=== PATIENT | male | born 1985 | race Two or more races ===

== ENCOUNTER 2021-07-03 04:30 | Emergency (ER) | payer MEDICAID, OTHER ==
[~2021-07-03] VITALS: Ht 167.6 cm; Wt 86.2 kg
[2021-07-03] MEDS ORDERED: IBUPROFEN 800 MG TAB PO ONE (04:45)
[2021-07-03 06:31] LABS: Urine WBC None Seen /hpf (0 - 3)
[2021-07-03 06:43] LABS: Urine Bacteria NONE SEEN /hpf (None Seen); Urine Blood TRACE /uL (Negative); Urine Mucus FEW (None Seen)
[2021-07-03 07:00] LABS: Basophils # (auto) 0 10 ^3/uL (0-0.2); Basophils % (auto) 0.5 % (0.0-2.0); Eosinophils # (auto) 0 10 ^3/uL (0-0.8); Hematocrit 48.6 % (41.0-53.0); Hemoglobin 16.5 g/dL (13.5-17.5); Lymphocytes # (auto) 0.7 10 ^3/uL (0.4-5.4); Lymphocytes % (auto) 17.3 % (10.0-50.0); Mean Corpuscular Hemoglobin 30.3 pg (28.0-32.0); Mean Corpuscular Hgb Conc. 34.1 g/dL (32.0-36.0); Mean Corpuscular Volume 89.1 fL (80.0-100.0); Monocytes # (auto) 0.3 10 ^3/uL (0-1.3); Neutrophils # (auto) 2.9 10 ^3/uL (1.6-8.6); Neutrophils % (auto) 74.2 % (37.0-80.0); Nucleated Red Blood Cells % 0.2 %; Red Blood Cells 5.45 10^6/uL (4.5-5.90); Red Cell Distribution Width 13.7 % (11.8-14.3)
[2021-07-03 07:17] LABS: Albumin 3.5 g/dL (3.4-5.0); BUN/Creatinine Ratio 11.2; Calcium 8.2 mg/dL (8.5-10.1)
[2021-07-03 07:19] LABS: Bilirubin, Total 0.5 mg/dL (0.2-1.0); Total Protein 6.9 g/dL (6.4-8.2)
[2021-07-03 08:53] VITALS: BP 136/52
== END 2021-07-03 08:59 | disposition home or self-care (01) ==
LOC: ER 04:30
DX: R50.9 Fever, unspecified (principal); E86.0 Dehydration; Z20.822 Contact with and (suspected) exposure to COVID-19
CPT/HCPCS: 36415; 80053; 81001; 85025; 87426; 99283; C9803; U0003